=== PATIENT | male | born 1940 | race Caucasian/White ===

== ENCOUNTER → 2018-05-29 08:52 | Outpatient (CLI) | payer MEDICARE, BC ==
[2015-12-14 11:00] VITALS: BMI 27.2
[~2018-05-29 08:52] MED LIST: ALBUTEROL1.25 MG/3 INH; ASPIRIN325 MG PO; ATIVAN0.5 MG PO; BUMEX2 MG PO; CLEOCIN HCL150 MG PO; COREG6.25 MG PO; DIOVAN HCT 160/1 TAB PO; FERROUS SULFAT325 MG PO; FLOMAX0.4 MG PO; FUROSEMIDE20 MG PO; FUROSEMIDE40 MG PO; GABAPENTIN100 MG PO; GLUCOPHAGE500 MG; GLUCOPHAGE500 MG PO; GLUCOTROL 5 MG T5 MG; GLUCOTROL 5 MG T5 MG PO; HYDRALAZINE HCL50 MG PO; LASIX20 MG PO; LASIX40 MG PO; LEVAQUIN250 MG PO; LEVAQUIN500 MG PO; LIPITOR40 MG PO; NITRO-DUR0.4 MG TRANSDERM; POTASSIUM99 M1 PO; PREDNISONE20 MG PO; PROTONIX40 MG PO; SODIUM BICARBO650 MG PO; SYMBICORT 16010.2 GM INH; TUMS500 MG PO; VENTOLIN HFA18 GM INH; VIBRAMYCIN 100100 MG PO
--- NOTE | 2018-06-02 14:01 | EC ---
PATIENT:EUFEMIA CHOWDHURY DATE OF SERVICE: 05/29/18 SEX: M MEDICAL RECORD: [id number] DATE OF : 40 LOCATION:D.[facility] AGE OF PATIENT: 78 ADMISSION DATE: 05/29/18 REFERRING PHYSICIAN: INTERPRETING PHYSICIAN: SONIDO MOBLEY MD ECHOCARDIOGRAM REPORT ECHO CHARGES 4 ECHO COMPLETE Date: 05/29/18 CLINICAL DIAGNOSIS: CARDIOMYOPATHY HX OF CAD/HTN/DM/CABG ECHOCARDIOGRAPHIC MEASUREMENTS (adult normal given) AC root (d.<3.7cm) 4.2 cm LV Septum d (<1.2 cm> 1.3 cm Valve Excursion 2.4 cm LV Septum (systole) 1.4 cm Left Atria (s.<4.0cm> 4.4 cm LVPW d(<1.2cm) 1.3 cm RV (d.<2.3cm) 4.8 cm LVPW (sytole) 1.3 cm LV diastole(<5.6CM) 6.7 cm MV E-F(>70mm/sec) cm LV systole 5.4 cm LVOT Diameter 1.9 cm MV exc.(>10mm) 1.3 cm Est.ejection fraction (50-75%) % DOPPLER: LVIT cm/sec A 78.0 cm/sec E 99.30 cm/sec LA cm/sec RVSP 44 mmHg LVOT 99 cm/sec AOP1/2T 849 m/s Asc. Ao 140 cm/sec RVOT 83 cm/sec RA cm/sec PA 133 cm/sec AV Gradient Peak 7.81 mmHg AV Mean 4.28 mmHg AV Area 2.1 cm MV Gradient Peak 4.72 mmHg MV Mean 1.84 mmHg MV Area cm COMMENTS: Paper Sales Representative: Lizzie CARRILLO Club Director: 3 Dr. Calvo TAPE# PACS Pericardial Effusion N DATE OF SERVICE: 05/29/2018 Mild LVH. LV internal dimensions are mildly dilated. LV is mildly globally hypo with mildly reduced EF. Estimated EF is 45% to 50%. Aortic valve sclerosis without stenosis by Doppler interrogation. Mild AI with color-flow imaging. Left atrium is dilated at 4.4 cm. Mitral valve is thickened. Moderate MR. Right-sided chambers are grossly normal. Mild TR. TRANSINT:[id number] Voice Confirmation ID: [id number] DOCUMENT ID: [id number] ECHOCARDIOGRAM REPORT [id number] EUFEMIA CHOWDHURY GREGORY A MD at 1401 CC: [id number] DICTATION DATE: 05/30/18 1235 DIE GRINDER: 05/30/18 1424 DEP CLI 05/29/18 [id number] [place] [address]
== END | disposition home or self-care (01) ==
LOC: D.HCCARDIO 08:30
PROVIDERS: ATTEND Internal Medicine Interventional Cardiology
DX: I42.9 Cardiomyopathy, unspecified (principal)

== ENCOUNTER → 2019-08-03 11:29 | Outpatient (CLI) | payer MEDICARE, BC ==
[2015-12-14 11:00] VITALS: BMI 27.2
--- NOTE | 2019-08-05 08:24 | EC ---
PATIENT:EUFEMIA CHOWDHURY DATE OF SERVICE: 08/03/19 SEX: M MEDICAL RECORD: [id number] DATE OF : 40 LOCATION:D.[facility] AGE OF PATIENT: 79 ADMISSION DATE: 08/03/19 REFERRING PHYSICIAN: INTERPRETING PHYSICIAN: SONIDO MOBLEY MD ECHOCARDIOGRAM REPORT ECHO CHARGES 4 ECHO COMPLETE Date: 08/03/19 CLINICAL DIAGNOSIS: HX OF CARDIOMYOPATHY/HEART FAILURE/CAD ECHOCARDIOGRAPHIC MEASUREMENTS (adult normal given) AC root (d.<3.7cm) 4.5 cm LV Septum d (<1.2 cm> 1.6 cm Valve Excursion 2.0 cm LV Septum (systole) 1.7 cm Left Atria (s.<4.0cm> 4.4 cm LVPW d(<1.2cm) 1.2 cm RV (d.<2.3cm) 5.0 cm LVPW (sytole) 1.4 cm LV diastole(<5.6CM) 6.6 cm MV E-F(>70mm/sec) cm LV systole 5.2 cm LVOT Diameter 1.8 cm MV exc.(>10mm) 1.5 cm Est.ejection fraction (50-75%) % DOPPLER: LVIT cm/sec A 58.0 cm/sec E 87.0 cm/sec LA cm/sec RVSP 59 mmHg LVOT 132 cm/sec AOP1/2T m/s Asc. Ao 146 cm/sec RVOT 65 cm/sec RA cm/sec PA 120 cm/sec AV Gradient Peak 8.47 mmHg AV Mean 4.26 mmHg AV Area 2.5 cm MV Gradient Peak 5.10 mmHg MV Mean 1.69 mmHg MV Area cm COMMENTS: Rehabilitation Therapist: 2 AYE CARRILLO [employer]iconductor Dies Loader: 3 Dr. Calvo TAPE# PACS Pericardial Effusion N DATE OF SERVICE: Adequate 2D, color flow imaging, spectral Doppler, and M-Mode. LVH is present. LV internal dimension is dilated. LV is mildly globally hypo with a reduced EF, estimated EF 40% to 45%. Aortic valve sclerosed without stenosis by Doppler interrogation. Mild AI by color flow imaging. Left atrium is dilated at 4.4 cm. Mitral valve shows no prolapse. Mild MR. Right-sided chambers are grossly normal. Moderate TR. ECHOCARDIOGRAM REPORT [id number] EUFEMIA CHOWDHURY TRANSINT:[id number] Voice Confirmation ID: [id number] DOCUMENT ID: [id number] SONIDO MOBLEY MD at 0824 CC: [id number] DICTATION DATE: 08/04/19 0844 VIBRATING SCREED OPERATOR: 08/04/19 0934 DEP CLI 08/03/19 [place] [id number] [place] [id number]
== END | disposition home or self-care (01) ==
LOC: D.HCCECHO 07-29 13:30
PROVIDERS: ATTEND Internal Medicine Interventional Cardiology
DX: I50.9 Heart failure, unspecified (principal)

== ENCOUNTER → 2020-05-24 13:58 | Outpatient (CLI) | payer MEDICARE, BC ==
[2015-12-14 11:00] VITALS: BMI 27.2
== END | disposition home or self-care (01) ==
LOC: D.RT 13:58
PROVIDERS: ATTEND Internal Medicine Pulmonary Disease
DX: J44.9 Chronic obstructive pulmonary disease, unspecified (principal)

== ENCOUNTER 2020-07-12 17:47 | Inpatient (IN) | payer MEDICARE, BC ==
[~2020-07-12] VITALS: Ht 170.2 cm; Wt 79.3 kg
--- NOTE | ~2020-07-12 | OP ---
PATIENT NAME: EUFEMIA CHOWDHURY MEDICAL RECORD: [id number] :40 LOCATION:D.M2 D.2113 ADMISSION DATE:07/12/20 SURGEON: LASHELL MOTA MD DATE OF OPERATION: 07/19/2020 PREOPERATIVE DIAGNOSES: 1. End-stage renal disease. 2. Diabetes mellitus. 3. Hypertension. 4. Congestive heart failure. POSTOPERATIVE DIAGNOSES: 1. End-stage renal disease. 2. Diabetes mellitus. 3. Hypertension. 4. Congestive heart failure. PROCEDURE: 1. Right IJ 19 cm HemoSplit catheter placement. 2. Fluoroscopic interpretation. SURGEON: Lashell Mota MD REPORT OF PROCEDURE: The patient's right neck and indwelling Trialysis catheter were all prepped and draped in sterile fashion. The distal catheter was cut and we advanced a wire through the Trialysis catheter. Fluoroscopy was noted that the catheter was in good position in the venous system. The catheter was removed. A total of 10 mL of 1% lidocaine with epinephrine was infused into the tissues of the patient's right neck and chest. A skin incision was made on the right lateral chest and the catheter was tunneled between this and the wire exit site. The dilator trocar device was placed over the wire and the wire and dilator were removed. The catheter tips were advanced through the trocar and then they were pulled back into position at the superior vena cava. The catheter aspirated nonpulsatile dark blood and flushed easily with heparinized saline. We sutured the catheter into place with 2-0 Prolenes. The subcutaneous tissues were reapproximated with interrupted 3-0 Vicryl and a 2-0 Prolene was placed around the distal skin edge because there was some bleeding present. COMPLICATIONS: None. CONDITION: Stable. ANESTHESIA: TIVA and local. BLOOD LOSS: 50 mL. TRANSINT:[id number] Voice Confirmation ID: [id number] DOCUMENT ID: [id number] OPERATIVE REPORT [id number] EUFEMIA CHOWDHURY LASHELL MOTA MD CC: [id number] DICTATION DATE: 07/19/20 1259 PICK UP TRUCK DRIVER: 07/19/20 1833 ADM IN [facility] [address] [place] [address]
--- NOTE | ~2020-07-12 | OP ---
PATIENT NAME: EUFEMIA CHOWDHURY MEDICAL RECORD: [id number] :40 LOCATION:D.M2 D.2113 ADMISSION DATE:07/12/20 SURGEON: LASHELL MOTA MD DATE OF OPERATION: 07/16/2020 PREOPERATIVE DIAGNOSES: 1. Malfunctioning right IJ Trialysis catheter. 2. Chronic kidney disease. 3. Bfhoh-me-mirqdlz kidney disease. 4. Diabetes mellitus. 5. Hypertension. 6. Congestive heart failure, undifferentiated. POSTOPERATIVE DIAGNOSES: 1. Malfunctioning right IJ Trialysis catheter. 2. Chronic kidney disease. 3. Mscup-aq-qfkphmb kidney disease. 4. Diabetes mellitus. 5. Hypertension. 6. Congestive heart failure, undifferentiated. PROCEDURE: Right IJ Trialysis catheter exchange. SURGEON: Lashell Mota MD DESCRIPTION OF PROCEDURE: The patient's right neck and indwelling Trialysis catheter were prepped and draped in sterile fashion. We removed the sutures and cut the nurse port. I was able to pass a wire. As we passed the wire, we ran into some resistance at about 15-20 cm from the skin. I kept pulling the wire back and readvancing the wire and eventually it passed through with ease and we were able to pass it to about 40 cm. Once we did this, then we advanced the 12.5 cm Trialysis catheter over the wire and it easily passed down into the vessel. The catheter aspirated nonpulsatile dark blood and flushed easily in all 3 ports. This was then sutured into place with 4-0 nylon and dressed appropriately. COMPLICATIONS: None. CONDITION: Stable. ANESTHESIA: Local. BLOOD LOSS: Minimal. Procedure done at the bedside. TRANSINT:[id number] Voice Confirmation ID: [id number] DOCUMENT ID: [id number] OPERATIVE REPORT [id number] EUFEMIA CHOWDHURY LASHELL OMTA MD CC: [id number] DICTATION DATE: 07/16/20 1110 PERSONAL BANKING OFFICER: 07/16/20 1129 ADM IN [address] [id number] [place] [address]
[2020-07-12] MEDS ORDERED: ZYLOPRIM100 MG PO (17:56)
[2020-07-12] MEDS ORDERED: PROSCAR5 MG PO (17:57)
[2020-07-12] MEDS ORDERED: TRESIBA FL100 UNIT/1 SC (17:58)
[2020-07-12] MEDS ORDERED: BUMEX2 MG PO (17:58)
[2020-07-12] MEDS ORDERED: PULMICORT0.25 MG/1 INH (17:59)
[2020-07-12] MEDS ORDERED: BROVANA15 MCG/2 M INH (18:00)
[2020-07-12] MEDS ORDERED: ALDACTONE25 MG PO (18:00)
[2020-07-12] MEDS ORDERED: FERROUS SULFAT325 MG PO (18:00)
[2020-07-12] MEDS ORDERED: VITAMIN D-40010 MCG PO (18:01)
[2020-07-12] MEDS ORDERED: NITROQUICK0.4 MG SL (18:04)
[2020-07-12] MEDS ORDERED: NITRO-DUR1 EAC3 TOPICAL (18:04)
[2020-07-12 18:38] LABS: APTT 32.8 SECONDS (22.8-39.4); INR 1.3 (0.85-1.17)
[2020-07-12 18:39] LABS: CALC OSMOLALITY 301 mosm/kg (275-300); CALCIUM 8.5 mg/dL (8.5-10.1); CARBON DIOXIDE 28.3 mmol/L (21.0-32.0); CHLORIDE - SERUM 101 mmol/L (98-107); CREATININE - SERUM 3.9 mg/dL (0.6-1.3); GLUCOSE 115 mg/dL (74-106); POTASSIUM - SERUM 5.2 mmol/L (3.5-5.1); SODIUM 139 mmol/L (136-145); UREA NITROGEN 77 mg/dL (7-18); eGFR NON AFRICAN AMERICAN 16 mL/min (90-120)
[2020-07-12 19:03] LABS: ALBUMIN 3.2 g/dL (3.4-5.0); ALKALINE PHOSPHATASE 120 U/L (30-120); ALT (SGPT) 20 U/L (10-68); BILIRUBIN - TOTAL 1.07 mg/dL (0.2-1.3); CREATINE KINASE 51 UL (21-232); PROTEIN - SERUM 6.4 g/dL (6.4-8.2)
[2020-07-12 19:08] LABS: TROPONIN-I 0.205 ng/mL (0.000-0.060)
[2020-07-12 19:19] LABS: BASOPHILS 0.1 % (0-2); EOSINOPHILS 0.8 % (0-7); HEMATOCRIT 37.7 % (42.0-54.0); HEMOGLOBIN 11.5 g/dL (13.5-17.5); IMMATURE GRANULOCYTES 0.3 % (0-5); LYMPHOCYTE ABS# 0.62 10x3/uL (1.32-3.57); LYMPHOCYTES 8.7 % (15-50); MCHC 30.5 g/dL (31.0-37.0); MCV 101.6 fL (80.0-100.0); MEAN PLATELET VOLUME 12.4 fL (7.4-10.4); MONOCYTES 11.1 % (2-11); NEUTROPHIL ABS# 5.63 10x3/uL (1.78-5.38); PLATELET COUNT 142 10x3/uL (130-400); RBC 3.71 10x6/uL (4.20-6.10); RDW 16.1 % (11.5-14.5); WBC 7.1 10x3/uL (4.8-10.8)
[2020-07-12 20:03] VITALS: BP 106/70
[2020-07-12 21:16] VITALS: BP 123/91
[2020-07-12 21:24] LABS: CKMB 3.9 U/L (0.0-3.6); CREATINE KINASE 52 UL (21-232)
[2020-07-12 21:29] LABS: TROPONIN-I 0.198 ng/mL (0.000-0.060)
[2020-07-12 21:56] VITALS: BP 102/73
[2020-07-12] MEDS ORDERED: VITAMIN D31250 MCG PO (23:21)
[2020-07-12 23:45] LABS: % SATURATION 16 % (15-55); IRON 35 ug/dl (35-150); TOTAL IRON BIND CAPACITY 209 ug/dl (260-445); UNSAT IRON BIND CAPACITY 174 ug/dl (150-375)
[2020-07-13] VITALS (7 sets, daily range): BP systolic 102–128; BP diastolic 64–83; BMI 27.3; BMI 27.2
[2020-07-13 05:52] LABS: BASOPHILS 0.2 % (0-2); HEMATOCRIT 38.1 % (42.0-54.0); HEMOGLOBIN 11.4 g/dL (13.5-17.5); IMMATURE GRANULOCYTES 0.2 % (0-5); LYMPHOCYTE ABS# 0.69 10x3/uL (1.32-3.57); LYMPHOCYTES 11.7 % (15-50); MCH 30.9 pg (26.0-34.0); MCHC 29.9 g/dL (31.0-37.0); MCV 103.3 fL (80.0-100.0); MEAN PLATELET VOLUME 12.3 fL (7.4-10.4); MONOCYTES 12.9 % (2-11); NEUTROPHIL ABS# 4.35 10x3/uL (1.78-5.38); PLATELET COUNT 146 10x3/uL (130-400); RBC 3.69 10x6/uL (4.20-6.10); RDW 16.3 % (11.5-14.5); WBC 5.9 10x3/uL (4.8-10.8)
[2020-07-13 06:38] LABS: ALBUMIN 3.1 g/dL (3.4-5.0); ALKALINE PHOSPHATASE 119 U/L (30-120); ALT (SGPT) 23 U/L (10-68); BILIRUBIN - TOTAL 0.89 mg/dL (0.2-1.3); CALC OSMOLALITY 303 mosm/kg (275-300); CALCIUM 8.3 mg/dL (8.5-10.1); CARBON DIOXIDE 31.9 mmol/L (21.0-32.0); CHLORIDE - SERUM 101 mmol/L (98-107); CKMB 3.6 U/L (0.0-3.6); CREATINE KINASE 46 UL (21-232); CREATININE - SERUM 4.1 mg/dL (0.6-1.3); GLUCOSE 161 mg/dL (74-106); POTASSIUM - SERUM 5.4 mmol/L (3.5-5.1); PROTEIN - SERUM 6.4 g/dL (6.4-8.2); SODIUM 139 mmol/L (136-145); UREA NITROGEN 77 mg/dL (7-18); eGFR NON AFRICAN AMERICAN 15 mL/min (90-120)
[2020-07-13 06:43] LABS: TROPONIN-I 0.169 ng/mL (0.000-0.060)
--- NOTE | 2020-07-13 07:30 | NUR ---
LAYING IN BED RESTING COMFORTABLE, NO DISTRESS NOTED, DENEIS PAIN, CALL LIGHT IN REACH, WILL MONITOR
--- NOTE | 2020-07-13 08:35 | NUR ---
SITTING UP EATING BREAKFAST
--- NOTE | 2020-07-13 10:30 | NUR ---
notified SABRINA Chung of renal consult
--- NOTE | 2020-07-13 11:00 | NUR ---
ASSISTED PT UP TO BSC AND THEN TO RECLINER, TOELRATED WELL BUT VERY WEAK, CALL LIGHT IN REACH, WILL MONITOR
[2020-07-13 11:38] LABS: CKMB 3.3 U/L (0.0-3.6); CREATINE KINASE 46 UL (21-232); TROPONIN-I 0.168 ng/mL (0.000-0.060)
[2020-07-13 14:50] LABS: BILIRUBIN NEGATIVE (NEGATIVE); KETONE NEGATIVE (NEGATIVE); NITRITE NEGATIVE (NEGATIVE); UROBILINOGEN NORMAL mg/dL (< 2)
--- NOTE | 2020-07-13 15:35 | NUR ---
FAMILY AT BEDSIDE, NO NEEDS VOICED AT THIS TIME
[2020-07-13 16:22] LABS: CREATININE - URINE 32.9 mg/dL (30-125); PROTEIN - URINE 26.5 mg/dL (0.0-11.9)
--- NOTE | 2020-07-13 20:30 | NUR ---
REPORT RECEIVED, PT A&O, UP IN BED TALKING ON THE PHONE WITH GRANDDAUGHTER. NO S/S OF DISTRESS OBSERVED. RR EVEN AND UNLABORED ON 3L. BED LOCKED AND LOWERED CL IN REACH. ASSESSMENT COMPLETED AT THIS TIME. WILL CONT POC.
[2020-07-14] VITALS: BP 103/71
[2020-07-14 04:00] VITALS: BP 119/78
[2020-07-14 06:13] LABS: BASOPHILS 0.2 % (0-2); EOSINOPHILS 1.5 % (0-7); HEMATOCRIT 35.4 % (42.0-54.0); HEMOGLOBIN 10.7 g/dL (13.5-17.5); LYMPHOCYTE ABS# 0.52 10x3/uL (1.32-3.57); LYMPHOCYTES 8.7 % (15-50); MCH 30.7 pg (26.0-34.0); MCHC 30.2 g/dL (31.0-37.0); MCV 101.7 fL (80.0-100.0); MEAN PLATELET VOLUME 12.7 fL (7.4-10.4); MONOCYTES 12.8 % (2-11); NEUTROPHIL ABS# 4.62 10x3/uL (1.78-5.38); NEUTROPHILS 76.8 % (40-80); PLATELET COUNT 145 10x3/uL (130-400); RBC 3.48 10x6/uL (4.20-6.10)
[2020-07-14 06:36] LABS: ALBUMIN 2.9 g/dL (3.4-5.0); ANION GAP 10.5 mmol/L (8-16); BILIRUBIN - TOTAL 0.79 mg/dL (0.2-1.3); CALCIUM 8.3 mg/dL (8.5-10.1); CREATININE - SERUM 4.2 mg/dL (0.6-1.3); MAGNESIUM - SERUM 2.9 mg/dL (1.8-2.4); POTASSIUM - SERUM 5.5 mmol/L (3.5-5.1); VANCOMYCIN - RANDOM 10.9 ug/mL (10.0-20.0)
[2020-07-14 07:00] VITALS: BP 127/77
[2020-07-14 11:30] VITALS: BP 120/69
[2020-07-14 14:00] VITALS: BP 129/79
--- NOTE | 2020-07-14 16:30 | NUR ---
REPORT RECEIVED FROM NURSE. RESIDENT RESTING COMFORTABLY WITH GRANDDAUGHTER BY THE BED. NO CURRENT COMPLAINTS NOTED. VERY PLEASANT.
--- NOTE | 2020-07-14 18:00 | NUR ---
I have reviewed this patient and I concur with the Shift Assessment completed by the Licensed Practical Nurse today this shift.
--- NOTE | 2020-07-14 19:00 | NUR ---
RECEIVED SHIFT REPORT FROM DAY SHIFT NURSE, PT VISITING WITH FAMILY MEMBER AT THIS TIME, INFORMED PT THAT I WILL COME BACK SHORTLY TO DO ASSESSMENT, PT VERBALIZES UNDERSTANDING, DENIES NEEDS AT THIS TIME
--- NOTE | 2020-07-14 20:45 | NUR ---
ASSESSMENT PER FLOW SHEET, VS OBTAINED, IV IN RIGHT WRIST INFUSING DOBUTAMINE PER MD ORDERS SEE EMAR, SALINE LOCK TO LEFT AC INTACT, RETAPED, PT REPORTS FLATUS, BM TODAY, AND USING URINAL WITH NO DIFFICULTY, EMPTIED 150 MLS OF CLEAR YELLOW URINE, TELEMETRY IN PLACE, PT DENIES NEEDS OR PAIN AT THIS TIME, BED IN LOW POSITION, SIDE RAILS X 2, CALL LIGHT IN REACH
--- NOTE | 2020-07-14 21:38 | NUR ---
TEJINDER NAVARRETE CNA REPORTS FSBS 153
[2020-07-14 22:11] VITALS: BP 108/68
--- NOTE | 2020-07-14 22:37 | NUR ---
PT AWAKE, ADM 2100/0 MEDS PER MD ORDERS, SEE EMAR, EMPTIED 400 MLS OF CLEAR YELLOW URINE FROM URINAL, PT SERVED FRESH H20, DENIES FURTHER NEEDS, BED IN LOW POSITION, SIDE RAILS X 2, CALL LIGHT IN REACH
[2020-07-15] VITALS (7 sets, daily range): BP systolic 99–124; BP diastolic 68–79; Ht 170.2 cm; Wt 79.3 kg
--- NOTE | 2020-07-15 | NUR ---
PT RESTING WITH EYES CLOSED, RESP QUIET, NO DISTRESS NOTED, LEFT UNDISTURBED AT THIS TIME
--- NOTE | 2020-07-15 02:30 | NUR ---
PT RESTING WITH EYES CLOSED, RESP QUIET, NO DISTRESS NOTED, LEFT UNDISTURBED AT THIS TIME
--- NOTE | 2020-07-15 04:34 | NUR ---
PT AWAKE, USING URINAL, INFORMED PT THAT I WILL COME BACK IN A FEW MINUTES, PT VERBALIZES UNDERSTANDING
--- NOTE | 2020-07-15 04:40 | NUR ---
PT FINISHED USING URINAL, EMPTIED 750 ML FROM URINAL, PUMP CLEARED, PT DENIES NEEDS OR PAIN AT THIS TIME, BED IN LOW POSITION, SIDE RAILS X 2, CALL LIGHT IN REACH
--- NOTE | 2020-07-15 06:17 | NUR ---
ADM PROTONIX PO PER MD ORDERS, TEJINDER NAVARRETE CNA OBTAINED FSBS, WEIGHT, AND CHANGED BEDDING
[2020-07-15 06:32] LABS: BASOPHILS 0.2 % (0-2); EOSINOPHILS 1.9 % (0-7); HEMATOCRIT 35.8 % (42.0-54.0); HEMOGLOBIN 10.9 g/dL (13.5-17.5); LYMPHOCYTE ABS# 0.49 10x3/uL (1.32-3.57); LYMPHOCYTES 9.3 % (15-50); MCH 30.7 pg (26.0-34.0); MCHC 30.4 g/dL (31.0-37.0); MCV 100.8 fL (80.0-100.0); MONOCYTES 14.4 % (2-11); NEUTROPHIL ABS# 3.93 10x3/uL (1.78-5.38); NEUTROPHILS 74.2 % (40-80); PLATELET COUNT 148 10x3/uL (130-400); RBC 3.55 10x6/uL (4.20-6.10); WBC 5.3 10x3/uL (4.8-10.8)
--- NOTE | 2020-07-15 06:37 | NUR ---
BP OBTAINED, SALINE LOCK IN LEFT AC FLUSHED, ADM LASIX SIVP, SALINE LOCK FLUSHED
--- NOTE | 2020-07-15 07:00 | NUR ---
PT LYING IN BED WITH EYES CLOSED. RESP EVEN AND UNLABORED. RAISES TO VERBAL STIMULI. O2 [address] AAOX4. PT DENIES NEEDS AT THIS TIME. CLIR. BED IN LOWEST POSITION. SIDE RAILS X2
--- NOTE | 2020-07-15 07:00 | NUR ---
SHIFT REPORT TO DAY SHIFT
[2020-07-15 07:01] LABS: ALBUMIN 3.1 g/dL (3.4-5.0); ANION GAP 14.6 mmol/L (8-16); BILIRUBIN - TOTAL 1.28 mg/dL (0.2-1.3); CALCIUM 8.8 mg/dL (8.5-10.1); CARBON DIOXIDE 28.7 mmol/L (21.0-32.0); CREATININE - SERUM 4.2 mg/dL (0.6-1.3); MAGNESIUM - SERUM 2.5 mg/dL (1.8-2.4); POTASSIUM - SERUM 5.3 mmol/L (3.5-5.1); PROTEIN - SERUM 6.5 g/dL (6.4-8.2); VANCOMYCIN - RANDOM 15.9 ug/mL (10.0-20.0)
[2020-07-15 09:13] LABS: HEPATITIS C ANTIBODY <0.1 (0.0-0.9)
--- NOTE | 2020-07-15 13:16 | NUR ---
Nutrition Follow-up: Good appetite. Reports eating well overall. Noted plans to place trialysis catheter and start HD. K+ consistently elevated. Diet: Diabetic Wt: 174# (07/15) Labs noted: K+ 5.3, BUN 78, Cre 4.2, GFR 14, Glu 137, Mg 2.5, Alb 3.1 Meds noted: Lasix, Florajen, vit D, Protonix, Humalog, Tums, electrolyte protocol -Change to renal carb consistent diet. -Encourage PO intake and honor food preferences within diet restrictions. -Monitor wt. -RD will follow up within 4-5 days.
--- NOTE | 2020-07-15 16:09 | NUR ---
PT TRANSPORTED TO DIALYSIS ACCOMPANIED BY HOSPITAL STAFF. O2 VIA NC AT [address]
--- NOTE | 2020-07-15 17:15 | NUR ---
PT RETURNED TO UNIT. NO DISTRESS NOTED. 02 VIA HFNC AT 3 LPM. CLIR. BED IN LOWEST POSITION. SIDE RAILS X2
--- NOTE | 2020-07-15 18:04 | NUR ---
PT NEEDS A STOOL SAMPLE COLLECTED. NO BM TODAY. HE STATES HE THINKS HE HAD ONE YESTERDAY.
--- NOTE | 2020-07-15 18:39 | NUR ---
MYKE CAVAZOS ORDERD NORCO 5MG FOR PT AFTER HE REPORTED 10/10 PAIN DUE TO TRIALYSIS. PT OFFERED NORCO 5MG BUT REFUSED. STATES HE WILL ASK FOR ONE LATER IF HE NEEDS IT. NO DISTRESS NOTED. RESTING QUIETLY
--- NOTE | 2020-07-15 19:43 | NUR ---
REPORT RECIEVED AND INITIAL ROUNDS COMPLETED. PT RESTING. NO DISTRESS. CALL LIGHT IN REACH.
[2020-07-16 01:11] VITALS: BP 110/69
--- NOTE | 2020-07-16 01:26 | NUR ---
RESTING IN BED WITH EYES CLOSED. DOBUTAMINE DRIP INFUSING AT 7ML/HR (3MCG/KG/MIN). VOIDING TO URINAL. FLUTTER 114 PER MONITORS. CALL LIGHT IN REACH.
[2020-07-16 05:15] LABS: BASOPHILS 0.2 % (0-2); EOSINOPHILS 1.4 % (0-7); HEMATOCRIT 34.9 % (42.0-54.0); HEMOGLOBIN 10.6 g/dL (13.5-17.5); LYMPHOCYTES 9.9 % (15-50); MCH 30.5 pg (26.0-34.0); MCHC 30.4 g/dL (31.0-37.0); MCV 100.6 fL (80.0-100.0); MEAN PLATELET VOLUME 10.9 fL (7.4-10.4); MONOCYTES 14.7 % (2-11); NEUTROPHIL ABS# 3.72 10x3/uL (1.78-5.38); NEUTROPHILS 73.8 % (40-80); PLATELET COUNT 139 10x3/uL (130-400); RBC 3.47 10x6/uL (4.20-6.10); RDW 15.8 % (11.5-14.5)
[2020-07-16 05:19] VITALS: BP 116/78
[2020-07-16 05:24] VITALS: BP 116/78
[2020-07-16 06:00] LABS: ALBUMIN 3.1 g/dL (3.4-5.0); ANION GAP 13.2 mmol/L (8-16); BILIRUBIN - TOTAL 0.95 mg/dL (0.2-1.3); CALCIUM 9.1 mg/dL (8.5-10.1); CARBON DIOXIDE 28.7 mmol/L (21.0-32.0); MAGNESIUM - SERUM 2.4 mg/dL (1.8-2.4); POTASSIUM - SERUM 4.9 mmol/L (3.5-5.1); PROTEIN - SERUM 6.4 g/dL (6.4-8.2); VANCOMYCIN - RANDOM 21.9 ug/mL (10.0-20.0)
[2020-07-16 07:30] VITALS: BP 131/74
--- NOTE | 2020-07-16 07:35 | NUR ---
INITIAL ROUNDS- PT RESTING COMFORTABLY IN BED, A/O X4, [place] TRIBE IN [place], RESP EVEN AND NONLABORED ON 3L NC. LT AC SL. RT WRIST INFUSING DOBUTAMIN AT 7CC/HR. RT IJ TRIALYSIS IN PLACE DRESSING CDI. ST 115 WITH PVC ON TELE. EMPTIED 400CC OF YELLOW URINE OUT OF URINAL AND EMPTIED A LARGE AMOUNT OF URINE OUT OF BEDSIDE COMMODE. PT DENIES ANY NEEDS AT THIS TIME. CALL LIGHT IN REACH, WILL CONTINUE PLAN OF CARE.
--- NOTE | 2020-07-16 12:18 | NUR ---
PT TO DIALYSIS VIA BED.
--- NOTE | 2020-07-16 14:30 | NUR ---
RECEIVED PT BACK TO ROOM 2113. PT DROWSY BUT EASILY AROUSES TO VOICE. PT DENIES ANY NEEDS AT THIS TIME. CALL LIGHT IN REACH.
[2020-07-16 15:30] VITALS: BP 103/70
--- NOTE | 2020-07-16 20:29 | NUR ---
INITIAL ROUNDS AND ASSESSMENT COMPLETED. PT RESTING IN BED. HE NOW HAS A WORKING TRIALYIS TO RIGHT IJ. USED IN DIALYSIS TODAY. HE STILL HAS A SALINE LOCK PIV TO LEFT A/C AND DOBUTAMINE @ 3MCG/KG/MIN (7ML/HR) IS INFUSING TO PIV IN RIGHT WRIST. PT IS ALERT/ORIENTED. VERY [place]. O2 @ 3L/HFNC. CURRENTLY RUNNING ST PER TELEMETRY. CALL LIGHT IN REACH. SR UP X 2 AND BED LOW.
[2020-07-16 21:07] VITALS: BP 100/65
[2020-07-17 01:23] VITALS: BP 114/72
[2020-07-17 05:07] VITALS: BP 114/72
[2020-07-17 06:12] LABS: BASOPHILS 0.2 % (0-2); HEMATOCRIT 34.7 % (42.0-54.0); HEMOGLOBIN 10.6 g/dL (13.5-17.5); LYMPHOCYTE ABS# 0.59 10x3/uL (1.32-3.57); LYMPHOCYTES 14.7 % (15-50); MCH 30.8 pg (26.0-34.0); MCHC 30.5 g/dL (31.0-37.0); MCV 100.9 fL (80.0-100.0); MEAN PLATELET VOLUME 11.4 fL (7.4-10.4); MONOCYTES 16.7 % (2-11); NEUTROPHIL ABS# 2.66 10x3/uL (1.78-5.38); NEUTROPHILS 66.4 % (40-80); PLATELET COUNT 157 10x3/uL (130-400); RBC 3.44 10x6/uL (4.20-6.10); RDW 15.8 % (11.5-14.5)
--- NOTE | 2020-07-17 06:32 | NUR ---
AM MEDS GIVEN. BLOOD FOR LAB COLLECTED FROM RIGHT IJ TRIALYSIS. IV DOBUTAMINE INFUSING @ 3MCG/KG/MIN. ST PER TELEMETRY. CALL LIGHT IN REACH.
[2020-07-17 06:41] LABS: BILIRUBIN - TOTAL 0.9 mg/dL (0.2-1.3); CARBON DIOXIDE 31.8 mmol/L (21.0-32.0); MAGNESIUM - SERUM 1.9 mg/dL (1.8-2.4); POTASSIUM - SERUM 4.8 mmol/L (3.5-5.1); VANCOMYCIN - RANDOM 21.1 ug/mL (10.0-20.0)
--- NOTE | 2020-07-17 07:40 | NUR ---
INITIAL ROUNDS- PT RESTING COMFORTABLY IN BED WITH EYES CLOSED, EASILY AROUSES TO VOICE. PT A/O X4, RESP EVEN AND UNLABORED ON 3L HF. LT AC SL. RT WRIST INFUSING DOBUTAMINE AT 7CC/HR. RT IJ TRIALYSIS WITH DRESSING CDI. ST 116 ON TELE. EMPTIED 700CC OF YELLOW URINE OUT OF URINAL. ALL NEEDS MET, CALL LIGHT IN REACH, WILL CONTINUE PLAN OF CARE.
[2020-07-17 08:07] VITALS: BP 122/78
--- NOTE | 2020-07-17 11:08 | NUR ---
BLOOD SUGAR OF 142, NO COVERAGE NEEDED PER S/S. PT RESTING COMFORTABLY IN BED, DENIES ANY NEEDS.
[2020-07-17 11:22] VITALS: BP 102/61
[2020-07-17 15:18] VITALS: BP 103/69
--- NOTE | 2020-07-17 16:38 | NUR ---
BLOOD SUGAR OF 188, 2UNITS OF INSULIN GIVEN PER S/S. PT DENIES ANY NEEDS AT THIS TIME. CALL LIGHT IN REACH.
[2020-07-17 20:00] VITALS: BP 93/61
[2020-07-18] VITALS: BP 99/64
[2020-07-18 04:00] VITALS: BP 111/68
[2020-07-18 06:43] LABS: BASOPHILS 0.5 % (0-2); EOSINOPHILS 2.3 % (0-7); HEMATOCRIT 34.8 % (42.0-54.0); HEMOGLOBIN 10.6 g/dL (13.5-17.5); IMMATURE GRANULOCYTES 0.2 % (0-5); LYMPHOCYTE ABS# 0.63 10x3/uL (1.32-3.57); LYMPHOCYTES 14.7 % (15-50); MCH 30.5 pg (26.0-34.0); MCHC 30.5 g/dL (31.0-37.0); MEAN PLATELET VOLUME 11.3 fL (7.4-10.4); MONOCYTES 15.2 % (2-11); NEUTROPHIL ABS# 2.87 10x3/uL (1.78-5.38); NEUTROPHILS 67.1 % (40-80); PLATELET COUNT 162 10x3/uL (130-400); RBC 3.48 10x6/uL (4.20-6.10); RDW 15.7 % (11.5-14.5); WBC 4.3 10x3/uL (4.8-10.8)
[2020-07-18 07:00] LABS: ANION GAP 11.6 mmol/L (8-16); BILIRUBIN - TOTAL 0.64 mg/dL (0.2-1.3); CALCIUM 8.6 mg/dL (8.5-10.1); CARBON DIOXIDE 29.9 mmol/L (21.0-32.0); CREATININE - SERUM 3.4 mg/dL (0.6-1.3); POTASSIUM - SERUM 4.5 mmol/L (3.5-5.1); PROTEIN - SERUM 6.3 g/dL (6.4-8.2); VANCOMYCIN - RANDOM 25.5 ug/mL (10.0-20.0)
--- NOTE | 2020-07-18 07:20 | NUR ---
INITIAL ROUNDS- PT RESTING COMFORTABLY IN BED. A/O X4, RESP EVEN AND NONLABORED ON 3L HF. RT WRIST INFUSING DOBUTAMINE AT 7CC/HR. RT IJ TRIALYSIS WITH CDI DRESSING, SWAB CAP IN PLACE. PROVIDED PT WITH ICE WATER AND EMPTIED 600CC OF YELLOW URINE OUT OF URINAL. PT NPO FOR POSSIBLE HEMOSPLIT PLACEMENT TODAY. ALL NEEDS MET CALL LIGHT IN REACH, WILL CONTINUE PLAN OF CARE.
[2020-07-18 08:00] VITALS: BP 119/83
--- NOTE | 2020-07-18 10:44 | NUR ---
GAVE 4MG OF MORPHINE FOR PAIN LEVEL OF 6/10. ALSO GAVE SCHEDULED ATIVAN FOR ANXIETY THAT WAS HELD THIS AM. PT VERY ANXIOUS BECAUSE WE STILL DON'T KNOW IF PT IS HAVING HEMOSPLIT PLACEMENT TODAY. ALL NEEDS MET, DAUGHTER AT BEDSIDE, CALL LIGHT IN REACH.
--- NOTE | 2020-07-18 10:59 | NUR ---
BLOOD SUGAR OF 129, NO COVERAGE NEEDED PER S/S.
[2020-07-18 11:00] VITALS: BP 115/67
--- NOTE | 2020-07-18 11:15 | NUR ---
CALLED DR. MOTA AND INFORMED HIM THAT PT IS UNDER THE IMPRESSION THAT HE IS HAVING A HEMOSPLIT PLACED TODAY. PT HAS BEEN NPO FOR POSSIBLE PROCEDURE TODAY. PER DR. MOTA PT IS NOT HAVING SURGERY TODAY IT WILL BE TOMORROW, WILL COME AND TALK TO PT LATER TODAY, OK TO EAT. PT TO DIALYSIS.
--- NOTE | 2020-07-18 15:12 | NUR ---
RECEIVED PT BACK TO ROOM 2113. ORDERED PT A TURKEY SANDWICH BECAUSE HE DOES NOT LIKE WHAT HE GOT FOR LUNCH. PT DENIES ANY OTHER NEEDS AT THIS TIME. CALL LIGHT IN REACH, FAMILY AT BEDSIDE.
--- NOTE | 2020-07-18 16:11 | NUR ---
BLOOD SUGAR OF 204, 6UNITS OF INSULIN GIVEN PER S/S. PT JUST GOT DONE EATING HIS LUNCH, DENIES ANY NEEDS AT THIS TIME. DAUGHTER AT BEDSIDE, CALL LIGHT IN REACH.
--- NOTE | 2020-07-18 16:45 | NUR ---
DIALYSIS TREATMENT TODAY. REMOVED 1 LITER. TOLERATED WELL WITH DOBUTAMINE DRIP AT 3MCG/KG/MIN. ENDING B/P . REPORT GIVEN TO GALLO WOODRUFF RN.
--- NOTE | 2020-07-18 19:05 | NUR ---
REPORT RECEIVED. PT A&O, UP IN BED RECEIVING BREATHING TREATMENT. NO S/S OF DISTRESS OBSERVED. RR EVEN & UNLABORED ON 3L. BED LOCKED AND LOWERED, CL IN REACH. ASSESSMENT COMPLETED AT THIS TIME. WILL CONT POC.
[2020-07-18 21:59] VITALS: BP 94/65
[2020-07-19] VITALS (9 sets, daily range): BP systolic 90–105; BP diastolic 60–71
[2020-07-19 05:59] LABS: BASOPHILS 0.2 % (0-2); EOSINOPHILS 1.2 % (0-7); HEMATOCRIT 35.9 % (42.0-54.0); HEMOGLOBIN 10.9 g/dL (13.5-17.5); IMMATURE GRANULOCYTES 0.4 % (0-5); LYMPHOCYTE ABS# 0.56 10x3/uL (1.32-3.57); LYMPHOCYTES 10.9 % (15-50); MCH 30.8 pg (26.0-34.0); MCHC 30.4 g/dL (31.0-37.0); MCV 101.4 fL (80.0-100.0); MEAN PLATELET VOLUME 11.5 fL (7.4-10.4); NEUTROPHIL ABS# 3.72 10x3/uL (1.78-5.38); NEUTROPHILS 72.3 % (40-80); PLATELET COUNT 171 10x3/uL (130-400); RBC 3.54 10x6/uL (4.20-6.10); RDW 15.5 % (11.5-14.5); WBC 5.1 10x3/uL (4.8-10.8)
[2020-07-19 06:21] LABS: ALBUMIN 3.2 g/dL (3.4-5.0); ANION GAP 11.1 mmol/L (8-16); BILIRUBIN - TOTAL 0.56 mg/dL (0.2-1.3); CALCIUM 8.7 mg/dL (8.5-10.1); CARBON DIOXIDE 30.7 mmol/L (21.0-32.0); CREATININE - SERUM 2.8 mg/dL (0.6-1.3); MAGNESIUM - SERUM 2.1 mg/dL (1.8-2.4); POTASSIUM - SERUM 4.8 mmol/L (3.5-5.1); PROTEIN - SERUM 6.5 g/dL (6.4-8.2); URIC ACID 3.9 mg/dL (2.6-7.2); VANCOMYCIN - RANDOM 20.1 ug/mL (10.0-20.0)
--- NOTE | 2020-07-19 08:46 | NUR ---
AM MEDS GIVEN PRIOR, PT LYING IN BED WITH HOB RAISED, EYES CLOSED, O2 IN PLACE. RR EVEN NON LABORED. PT FAMILY AT BEDSIDE. DOBUMATIME DRIP INFUSING WITHOUT COMPLICATIONS. NO NEEDS VOICED. CLWR.
--- NOTE | 2020-07-19 10:50 | NUR ---
PT TAKEN TO SURGERY AT THIS TIME VIA BED.
--- NOTE | 2020-07-19 13:24 | NUR ---
Nutrition Reassessment/Follow-up: NPO for hemosplit today. Overall good PO intake otherwise. ST signed off. HD yesterday (-1 L). Wt: 174# (07/15)IBW: 148# Labs noted: BUN 40, Cre 2.8, GFR 23, K+ 4.8, Glu 153, Alb 3.2 Meds noted: Florajen, Protonix, Zofran, Tums, Humalog, electrolyte protocol Est needs: 9372-3609 kcal/day (30-35 kcal/kg IBW) 80-90 g protein/day (1.2-1.3 g/kg IBW) Fluid: 1000 mL + UOP -Resume diet when medically feasible (renal carb consistent, Nepro TID). -Need new wt. -RD will follow up within 7 days if pt still admitted.
--- NOTE | 2020-07-19 13:57 | NUR ---
PT ARRIVED FROM SURGERY AT THIS TIME. RR EVEN NON LABORED. O2 IN PLACE VIA NC. PT AWAKENS EASILY, DROWSINESS NOTED. VS STABLE. GRANDDAUGHTER AT BESIDE. CLWR.
--- NOTE | 2020-07-19 17:36 | NUR ---
PT SITTING UP IN BED EATING DINNER TRAY, RR EVEN NON LABORED , O2 INPLACE. GRANDDAUGHTER AT BEDSIDE. NO NEEDS VOICED. CLWR.
[2020-07-19 18:41] LABS: SARS-CoV-2 ANTIGEN NEGATIVE- SARS-COV-2 (NEGATIVE)
--- NOTE | 2020-07-19 20:04 | NUR ---
REPORT RECEIVED. PT A&O, UP IN BED RECEIVING RESP TREATMENT. NO S/S OF DISTRESS OBSERVED. RR EVEN AND UNLABORED ON 3L. BED LOCKED AND LOWERED, CL IN REACH. ASSESSMENT COMPLETE. WILL CONT POC.
[2020-07-20 01:48] VITALS: BP 111/76
[2020-07-20 05:08] LABS: BASOPHILS 0.6 % (0-2); EOSINOPHILS 1.6 % (0-7); HEMATOCRIT 37.4 % (42.0-54.0); HEMOGLOBIN 11.1 g/dL (13.5-17.5); LYMPHOCYTE ABS# 0.52 10x3/uL (1.32-3.57); LYMPHOCYTES 10.3 % (15-50); MCH 30.2 pg (26.0-34.0); MCHC 29.7 g/dL (31.0-37.0); MCV 101.9 fL (80.0-100.0); MEAN PLATELET VOLUME 11.1 fL (7.4-10.4); MONOCYTES 13.6 % (2-11); NEUTROPHIL ABS# 3.74 10x3/uL (1.78-5.38); NEUTROPHILS 73.9 % (40-80); PLATELET COUNT 167 10x3/uL (130-400); RBC 3.67 10x6/uL (4.20-6.10); RDW 15.7 % (11.5-14.5); WBC 5.1 10x3/uL (4.8-10.8)
[2020-07-20 05:25] LABS: ALBUMIN 3.3 g/dL (3.4-5.0); ANION GAP 9.5 mmol/L (8-16); BILIRUBIN - TOTAL 0.56 mg/dL (0.2-1.3); CALCIUM 8.8 mg/dL (8.5-10.1); CARBON DIOXIDE 32.2 mmol/L (21.0-32.0); CREATININE - SERUM 3.4 mg/dL (0.6-1.3); MAGNESIUM - SERUM 2.1 mg/dL (1.8-2.4); POTASSIUM - SERUM 4.7 mmol/L (3.5-5.1); PROTEIN - SERUM 6.6 g/dL (6.4-8.2); VANCOMYCIN - RANDOM 16.8 ug/mL (10.0-20.0)
[2020-07-20 05:50] VITALS: BP 116/74
[2020-07-20 08:09] VITALS: BP 118/76
--- NOTE | 2020-07-20 08:36 | NUR ---
AM MEDS GIVEN, SPOKE WITH PT AND FAMILY REGARDING PLAN TO GO TO DIALYSIS TODAY. RR EVEN NON LABORED. BP MEDS HELD. PT DENIES ANY NEEDS, EATING BREAKFAST. CLWR.
--- NOTE | 2020-07-20 13:14 | NUR ---
PT ARRIVED BACK FROM DIALYSIS AT THIS TIME. PT SPOKE WITH DIETARY REGARDING LUNCH REQUEST FOR FOOD. WIPES GIVEN PER REQUEST. NO FURTHER NEEDS VOICED. CLWR.
--- NOTE | 2020-07-20 14:34 | NUR ---
REHAB PRESCREEN HAS BEEN RECEIVED. MEDICALLY, HE LOOKS LIEK A GOOD PATIENT, BUT THERAPY EVALUATIONS ARE STILL PENDING. I CALLED KAILEE IN OUTPATIENT TO SEE IF SHE COULD CONTACT THE PHYSICAL THERAPIST IN ACUTE TO DAY TO SEE WHERE HE IS ON THE EVALUATION LIST. I HAVE ALSO ASKED FOR AN OT EVAL TO HELP SUPPORT THE NEED FOR 3 HOURS OF THERAPY A DAY. I WILL CONTINUE TO LOOK AT THE CHART AND IF MEETS CRITERIA, WILL CONTINUE WITH THE ELECTRONIC SCREEN PROCESS. THANK YOU FOR THE REFERRAL. MARISA ARANA RN CLINICAL LIAISON, INPATIENT REHAB.
--- NOTE | 2020-07-20 15:10 | NUR ---
THERAPY ATTEMPTED TO DO THEIR EVALUATIONS AND IT WAS DECLINED. PTS GRANDDAUGHTER WANTS TO TAKE HIM HOME, AND THEY DO NOT EVEN WANT THERAPY TO EVALUATE HIM. I HAVE EXPLAINED THIS TO YADIEL ALMENDAREZ RN , AND WE WILL CLOSE OUT THIS REFERRAL. MARISA ARANA RN CLINICAL LIAISON, INPATIENT [facility].
--- NOTE | 2020-07-20 17:02 | MORECARE ---
CASE MANAGEMENT DISCHARGE SUMMARY PATIENT: EUFEMIA CHOWDHURY UNIT: [id number] ADM DATE: 07/12/20 AGE: 80 : 40 SEX: M ROOM/BED: D.2114 AUTHOR: MEAGAN,DOC PHYSICIAN: REFERRING PHYSICIAN: KASEY JOHNSTON DO DATE OF SERVICE: 07/20/20 Case Management Discharge Planning Summary COMMENTS ENTERED DATE: 07/15/20 13:51 CT COMMENT TYPE: Discharge Planning REVIEWER: Kaylen Underwood CM notified Emily dialysis coordinator, that patient will need an outpatient dialysis chair. DCP REVIEW SUMMARY ANTICIPATED D/C DATE: EXPECTED LOS : CASE STATUS: DCP Initiated INITIAL REVIEW: 07/20/2020 INITIAL REVIEWER: Kaylen Underwood FINAL DISCHARGE DISPOSITION: : FINAL REVIEWER: FINAL REVIEW DATE: DCP Focus Questions & Answers DCP Screen QUESTION: ANSWER High Risk Factors: : Hosp related to CHF, COPD, DM, End Stage Ds, CVA, CA DCP Evaluation QUESTION: ANSWER Patient's ability to cope with chronic illness : d. No chronic illness Would patient like to participate in any Care Coordination programs (if applicable): : Not applicable Mental health screen: : No mental health history DCP Re-evaluation QUESTION: ANSWER Would patient like to participate in any Care Coordination programs (if applicable): : Not applicable PATIENT: EUFEMIA CHOWDHURY ENCOUNTER: [id number] MEDICAL RECORD#: [id number] ADMISSION DATE: 07/12/2020 DISCHARGE DATE: ATTENDING MD: KASEY BOYD : AGE: 80 MARITAL STATUS: W DC PLAN ID: [id number] FACILITY: [facility] PRINTED ON: 07/20/20 17:02 CT All edits/amendments must be made on the electronic document DICTATION DATE: 07/20/201701 MANAGER LPN: CHAPIS 07/20/201701 RPT#: [id number] DC DATE: STATUS: ADM IN [facility] [address] [place] [address] END OF REPORT
--- NOTE | 2020-07-20 17:14 | MORECARE ---
CASE MANAGEMENT DISCHARGE SUMMARY PATIENT: EUFEMIA CHOWDHURY UNIT: [id number] ADM DATE: 07/12/20 AGE: 80 : 40 SEX: M ROOM/BED: D.2114 AUTHOR: MEAGAN,DOC PHYSICIAN: REFERRING PHYSICIAN: KASEY JOHNSTON DO DATE OF SERVICE: 07/20/20 Case Management Discharge Planning Summary COMMENTS ENTERED DATE: 07/20/20 17:11 CT COMMENT TYPE: Discharge Planning REVIEWER: Kaylen Underwood DC PLAN: Home with Grand daughter ANTICIPATED DC NEEDS: OP HD chair to be set up in [place]. Emily Nava is working on this CM met with patient to complete initial dc planning assessment. CM educated patient on the CM role and verbal consent given by patient to complete assessment. CM verified patient's address, phone number, and emergency contact phone numbers. Patient lives at home with his grand daughter. His grand daughter is in the room and states she is with him 15/10. At discharge patient plans to return and feels this is a safe discharge. CM discussed availability of home health, rehab services, and medical equipment. Patient denied known discharge needs at this time. Transportation provider at discharge will be his grand daughter. She states she will be the one to drive him to and from HD. She states they have all DME needed and use [facility] for oxygen. CM will continue to follow and will assist as needed with dc plans/needs. ENTERED DATE: 07/15/20 13:51 CT COMMENT TYPE: Discharge Planning REVIEWER: Kaylen Underwood CM notified Emily dialysis coordinator, that patient will need an outpatient dialysis chair. DCP REVIEW SUMMARY ANTICIPATED D/C DATE: EXPECTED LOS : CASE STATUS: DCP Initiated INITIAL REVIEW: 07/20/2020 INITIAL REVIEWER: Kaylen Underwood FINAL DISCHARGE DISPOSITION: : FINAL REVIEWER: FINAL REVIEW DATE: DCP Focus Questions & Answers DCP Screen QUESTION: ANSWER High Risk Factors: : Hosp related to CHF, COPD, DM, End Stage Ds, CVA, CA DCP Evaluation QUESTION: ANSWER Patient's ability to cope with chronic illness : a. Adequate (0-3 ED visits in 6 mos., adequate financial resources, attends scheduled appts.) Patient and/or caregiver agree upon recommended discharge plan? : Yes Family / Caregiver's ability to cope with chronic illness: : a. Adequate (ability to meet patient's medical needs, ensures patient attends medical appts.) Patient's current cognitive status: : *Oriented to person, place, situation, time and present Patient gives permission to discuss discharge plans with: (name, relationship and number) : Luz clinton - [phone] Does the patient have the ability to pay for or attain post discharge needs / services? : Yes Functional screen assessment: : Basic needs can adequately be met by self Family / Caregiver's ability to cope with chronic illness: : a. Adequate (ability to meet patient's medical needs, ensures patient attends medical appts.) Physical Status: : Partial care dependence Physical Status: : Mobility impaired Physical Status: : Compromised skin integrity Equipment needed for post hospitalization: : None Is there a likelihood that the patient will require additional services to return to the preadmission environment? : No Living Arrangements: : Home with others Partial Dependence, assistance required for: : Bathing Partial Dependence, assistance required for: : Ambulation / Mobility Results of this evaluation have been discussed with: : Patient Results of this evaluation have been discussed with: : Family Patient with capacity for self-care or can be cared for in same environment as prior to hospitalization? : Yes Living arrangements comments: : Luz clinton Baseline cognitive status: : *Oriented to person, place, situation, time and present Physical environment modification needed / anticipated for discharge: : No Medication Management: : Patient states can afford medications Planned post hospital services available for patient? : Yes Pharmacy name(s): : [facility] Does Patient have transportation to get home and to follow-up medical appointments when discharged from the hospital? : Yes Would patient like to participate in any Care Coordination programs (if applicable): : Not applicable Comments: : His grand daughter will transport him to and from appointments and dialysis Does the patient have electricity at home? : Yes Does the patient have running water in their house? : Yes Equipment in use: : Wheelchair Equipment in use: : Walker - Rolling Equipment in use: : Shower Chair Equipment in use: : Other Equipment in use: : Nebulizer Equipment in use: : Home Oxygen with Nasal Cannula Equipment in use: : Glucometer Equipment in use: : Cane - Single Leg Other Equipment comments: : Alert button Portable Oxygen Equipment agency name and contact information: : [place] [employer] Patient Mental health screen: : No mental health history Psychosocial status: : Adult with physical limitations Abuse/Neglect: : None Contact information for resources in use: : To have HD chair set up in [facility] Re-evaluation QUESTION: ANSWER Would patient like to participate in any Care Coordination programs (if applicable): : Not applicable PATIENT: EUFEMIA CHOWDHURY ENCOUNTER: [id number] MEDICAL RECORD#: [id number] ADMISSION DATE: 07/12/2020 DISCHARGE DATE: ATTENDING MD: KASEY BOYD : AGE: 80 MARITAL STATUS: W DC PLAN ID: [id number] FACILITY: [facility] PRINTED ON: 07/20/20 17:14 CT All edits/amendments must be made on the electronic document DICTATION DATE: 07/20/201713 RETAIL SALES REPRESENTATIVE: CHAPIS 07/20/201713 RPT#: [id number] DC DATE: STATUS: ADM IN [facility] [address] [place] [address] END OF REPORT
[2020-07-20 19:46] VITALS: BP 111/64
[2020-07-20 23:25] VITALS: BP 95/60
[2020-07-21 05:09] VITALS: BP 95/57
[2020-07-21 05:50] LABS: BASOPHILS 0.2 % (0-2); HEMATOCRIT 33.4 % (42.0-54.0); HEMOGLOBIN 10.3 g/dL (13.5-17.5); IMMATURE GRANULOCYTES 0.2 % (0-5); LYMPHOCYTE ABS# 0.45 10x3/uL (1.32-3.57); LYMPHOCYTES 8.2 % (15-50); MCH 31.1 pg (26.0-34.0); MCHC 30.8 g/dL (31.0-37.0); MCV 100.9 fL (80.0-100.0); MEAN PLATELET VOLUME 11.5 fL (7.4-10.4); MONOCYTES 12.9 % (2-11); NEUTROPHIL ABS# 4.23 10x3/uL (1.78-5.38); NEUTROPHILS 76.5 % (40-80); PLATELET COUNT 153 10x3/uL (130-400); RBC 3.31 10x6/uL (4.20-6.10); RDW 15.7 % (11.5-14.5); WBC 5.5 10x3/uL (4.8-10.8)
[2020-07-21 06:26] LABS: ALBUMIN 2.9 g/dL (3.4-5.0); ANION GAP 11.8 mmol/L (8-16); BILIRUBIN - TOTAL 0.83 mg/dL (0.2-1.3); CALCIUM 8.6 mg/dL (8.5-10.1); CARBON DIOXIDE 30.2 mmol/L (21.0-32.0); CREATININE - SERUM 2.7 mg/dL (0.6-1.3); MAGNESIUM - SERUM 2.1 mg/dL (1.8-2.4); VANCOMYCIN - RANDOM 16.5 ug/mL (10.0-20.0)
[2020-07-21 08:00] VITALS: BP 102/67
--- NOTE | 2020-07-21 09:17 | MORECARE ---
CASE MANAGEMENT DISCHARGE SUMMARY PATIENT: EUFEMIA CHOWDHURY UNIT: [id number] ADM DATE: 07/12/20 AGE: 80 : 40 SEX: M ROOM/BED: D.1714 AUTHOR: MEAGAN,DOC PHYSICIAN: REFERRING PHYSICIAN: KASEY JOHNSTON DO DATE OF SERVICE: 07/21/20 Case Management Discharge Planning Summary COMMENTS ENTERED DATE: 07/21/20 9:10 CT COMMENT TYPE: Discharge Planning REVIEWER: Kaylen Underwood CM spoke with Emily Nava about HD chair. [place] [facility] is unable to accommodate a new chair set up until Saturday. Anticipate DC after dialysis Saturday for new start on Saturday? ENTERED DATE: 07/20/20 17:11 CT COMMENT TYPE: Discharge Planning REVIEWER: Kaylne Underwood DC PLAN: Home with Grand daughter ANTICIPATED DC NEEDS: OP HD chair to be set up in [place]. Emily Nava is working on this CM met with patient to complete initial dc planning assessment. CM educated patient on the CM role and verbal consent given by patient to complete assessment. CM verified patient's address, phone number, and emergency contact phone numbers. Patient lives at home with his grand daughter. His grand daughter is in the room and states she is with him 15/10. At discharge patient plans to return and feels this is a safe discharge. CM discussed availability of home health, rehab services, and medical equipment. Patient denied known discharge needs at this time. Transportation provider at discharge will be his grand daughter. She states she will be the one to drive him to and from HD. She states they have all DME needed and use [facility] for oxygen. CM will continue to follow and will assist as needed with dc plans/needs. ENTERED DATE: 07/15/20 13:51 CT COMMENT TYPE: Discharge Planning REVIEWER: Kaylen Underwood CM notified Emily, dialysis coordinator, that patient will need an outpatient dialysis chair. DCP REVIEW SUMMARY ANTICIPATED D/C DATE: EXPECTED LOS : CASE STATUS: DCP Initiated INITIAL REVIEW: 07/20/2020 INITIAL REVIEWER: Kaylen Underwood FINAL DISCHARGE DISPOSITION: : FINAL REVIEWER: FINAL REVIEW DATE: DCP Focus Questions & Answers DCP Screen QUESTION: ANSWER High Risk Factors: : Hosp related to CHF, COPD, DM, End Stage Ds, CVA, CA DCP Evaluation QUESTION: ANSWER Patient gives permission to discuss discharge plans with: (name, relationship and number) : Luz beyer daughter - [phone] Patient's current cognitive status: : *Oriented to person, place, situation, time and present Family / Caregiver's ability to cope with chronic illness: : a. Adequate (ability to meet patient's medical needs, ensures patient attends medical appts.) Patient and/or caregiver agree upon recommended discharge plan? : Yes Patient's ability to cope with chronic illness : a. Adequate (0-3 ED visits in 6 mos., adequate financial resources, attends scheduled appts.) Physical Status: : Compromised skin integrity Physical Status: : Mobility impaired Physical Status: : Partial care dependence Family / Caregiver's ability to cope with chronic illness: : a. Adequate (ability to meet patient's medical needs, ensures patient attends medical appts.) Functional screen assessment: : Basic needs can adequately be met by self Does the patient have the ability to pay for or attain post discharge needs / services? : Yes Partial Dependence, assistance required for: : Ambulation / Mobility Partial Dependence, assistance required for: : Bathing Living Arrangements: : Home with others Is there a likelihood that the patient will require additional services to return to the preadmission environment? : No Equipment needed for post hospitalization: : None Baseline cognitive status: : *Oriented to person, place, situation, time and present Living arrangements comments: : Luz clinton Patient with capacity for self-care or can be cared for in same environment as prior to hospitalization? : Yes Results of this evaluation have been discussed with: : Family Results of this evaluation have been discussed with: : Patient Physical environment modification needed / anticipated for discharge: : No Medication Management: : Patient states can afford medications Pharmacy name(s): : [facility] Planned post hospital services available for patient? : Yes Does Patient have transportation to get home and to follow-up medical appointments when discharged from the hospital? : Yes Comments: : His grand daughter will transport him to and from appointments and dialysis Would patient like to participate in any Care Coordination programs (if applicable): : Not applicable Does the patient have electricity at home? : Yes Does the patient have running water in their house? : Yes Equipment in use: : Cane - Single Leg Equipment in use: : Glucometer Equipment in use: : Home Oxygen with Nasal Cannula Equipment in use: : Nebulizer Equipment in use: : Other Equipment in use: : Shower Chair Equipment in use: : Walker - Rolling Equipment in use: : Wheelchair Other Equipment comments: : Alert button Portable Oxygen Equipment agency name and contact information: : [employer] [place] Patient Mental health screen: : No mental health history Psychosocial status: : Adult with physical limitations Abuse/Neglect: : None Contact information for resources in use: : To have HD chair set up in [facility] Re-evaluation QUESTION: ANSWER Would patient like to participate in any Care Coordination programs (if applicable): : Not applicable PATIENT: EUFEMIA CHOWDHURY ENCOUNTER: [id number] MEDICAL RECORD#: [id number] ADMISSION DATE: 07/12/2020 DISCHARGE DATE: ATTENDING MD: KASEY BOYD : AGE: 80 MARITAL STATUS: W DC PLAN ID: [id number] FACILITY: [facility] PRINTED ON: 07/21/20 9:17 CT All edits/amendments must be made on the electronic document DICTATION DATE: 07/21/20916 INSTRUMENT ENGINEER: DM 07/21/20916 RPT#: [id number] DC DATE: STATUS: ADM IN [facility] [address] [place] [address] END OF REPORT
[2020-07-21 11:07] VITALS: BP 101/62
[2020-07-21 16:04] VITALS: BP 90/60
[2020-07-21 20:00] VITALS: BP 96/64
--- NOTE | 2020-07-21 23:55 | NUR ---
REPORT RECEIVED. A&O, UP IN BED WATCHING TV. NO S/S DISTRESS OBSERVED. RR EVEN AND UNLABORED ON 3L. BED LOCKED AND LOWERED, CL IN REACH. ASSESSMENT COMPLETE. WILL CONT POC.
[2020-07-22] VITALS: BP 90/61
--- NOTE | 2020-07-22 02:37 | NUR ---
RESPONDED TO PTS ROOM. PT STATED "I DONT KNOW WHAT IS GOING ON, BUT I FEEL RIGHT. SOMETHING IS WRONG." V/S STABLE. LUNG SOUNDS UNCHANGED FROM PREVIOUS ASSESSMENT. SPOKE WITH MARISELA PARDO APN. ORDERS TO D/C FLUIDS AND CONSULT DR. MILLS IN THE AM.
[2020-07-22 04:00] VITALS: BP 119/74
[2020-07-22 06:03] LABS: BASOPHILS 0.2 % (0-2); EOSINOPHILS 1.5 % (0-7); HEMATOCRIT 31.9 % (42.0-54.0); HEMOGLOBIN 9.7 g/dL (13.5-17.5); IMMATURE GRANULOCYTES 0.4 % (0-5); LYMPHOCYTE ABS# 0.59 10x3/uL (1.32-3.57); LYMPHOCYTES 12.9 % (15-50); MCH 30.2 pg (26.0-34.0); MCHC 30.4 g/dL (31.0-37.0); MCV 99.4 fL (80.0-100.0); MEAN PLATELET VOLUME 11.7 fL (7.4-10.4); MONOCYTES 11.4 % (2-11); NEUTROPHIL ABS# 3.35 10x3/uL (1.78-5.38); NEUTROPHILS 73.6 % (40-80); PLATELET COUNT 160 10x3/uL (130-400); RBC 3.21 10x6/uL (4.20-6.10); RDW 15.5 % (11.5-14.5); WBC 4.6 10x3/uL (4.8-10.8)
[2020-07-22 06:26] LABS: ALBUMIN 2.8 g/dL (3.4-5.0); ANION GAP 15.5 mmol/L (8-16); BILIRUBIN - TOTAL 0.76 mg/dL (0.2-1.3); CALCIUM 8.8 mg/dL (8.5-10.1); CARBON DIOXIDE 26.4 mmol/L (21.0-32.0); CREATININE - SERUM 3.2 mg/dL (0.6-1.3); MAGNESIUM - SERUM 2.3 mg/dL (1.8-2.4); POTASSIUM - SERUM 3.9 mmol/L (3.5-5.1); VANCOMYCIN - RANDOM 14.8 ug/mL (10.0-20.0)
--- NOTE | 2020-07-22 07:58 | NUR ---
0800 ENCOURAGED IS USE PULLING 1250ML
[2020-07-22] MEDS ORDERED: FLOMAX0.4 MG PO (08:52)
[2020-07-22] MEDS ORDERED: COREG 3.1253.125 MG PO (08:53)
[2020-07-22] MEDS ORDERED: FLORAJEN DIGES1 EACH PO (08:54)
[2020-07-22] MEDS ORDERED: MELATONIN 3 MG1 TAB PO (08:55)
[2020-07-22] MEDS ORDERED: HYDROCODON-ACE1 EAC7 PO (08:57)
[2020-07-22] MEDS ORDERED: ATIVAN0.5 MG PO (08:57)
[2020-07-22 09:15] VITALS: BP 94/63
--- NOTE | 2020-07-22 11:57 | NUR ---
0940 TRANSPORTED TO DIALYSIS UNIT VIA BED
--- NOTE | 2020-07-22 14:44 | NUR ---
1421 WRITTEN AND VERBAL DISCHARGE INSTRUCTIONS PROVIDE BOTH PATIENT AND HIS CAREGIVER, BETTINA, VERBALIZED UNDERSTANDING [facility] SITE DRY AND INTACT INSTRUCTED ON ARRIVAL TO HIS [facility] DIALYSIS UNIT IN [place] WHEELCHAIR TO FAMILY CAR
--- NOTE | 2020-07-22 14:44 | NUR ---
1400 TRETURNED FROM DIALYSIS UNIT 1.5 LITERS REMOVED
--- NOTE | 2020-07-22 15:09 | MORECARE ---
CASE MANAGEMENT DISCHARGE SUMMARY PATIENT: EUFEMIA CHOWDHURY UNIT: [id number] ADM DATE: 07/12/20 AGE: 80 : 40 SEX: M ROOM/BED: D.2999 AUTHOR: MEAGAN,DOC PHYSICIAN: REFERRING PHYSICIAN: KASEY JOHNSTON DO DATE OF SERVICE: 07/22/20 Case Management Discharge Planning Summary COMMENTS ENTERED DATE: 07/22/20 14:46 CT COMMENT TYPE: Discharge Planning REVIEWER: Tiarra Tapia LATE ENTRY 0905 SUKHDEV PORTILLO CALLED TO VERIFY [place]AIR TIME FOR [place] HE WILL DIALYZE HERE FOR TODAY THEN START IN [place] ON SATURDAY. SHE WILL FORWARD THE PACKET W/ CHAIR TIME (1030) PASTIENT RETURNED FROM DIALYZE AND WAS DISCHARGED IMMEDIATELY. CM DID NOT GET TO SEE PATIENT PRIOR TO DISCHARGE. ENTERED DATE: 07/21/20 9:10 CT COMMENT TYPE: Discharge Planning REVIEWER: Kaylen Underwood CM spoke with Emily Nava about HD chair. [place] [facility] is unable to accommodate a new chair set up until Saturday. Anticipate DC after dialysis Saturday for new start on Saturday? ENTERED DATE: 07/20/20 17:11 CT COMMENT TYPE: Discharge Planning REVIEWER: Kaylen Underwood DC PLAN: Home with Grand daughter ANTICIPATED DC NEEDS: OP HD chair to be set up in [place]. Emily Nava is working on this CM met with patient to complete initial dc planning assessment. CM educated patient on the CM role and verbal consent given by patient to complete assessment. CM verified patient's address, phone number, and emergency contact phone numbers. Patient lives at home with his grand daughter. His grand daughter is in the room and states she is with him 15/10. At discharge patient plans to return and feels this is a safe discharge. CM discussed availability of home health, rehab services, and medical equipment. Patient denied known discharge needs at this time. Transportation provider at discharge will be his grand daughter. She states she will be the one to drive him to and from HD. She states they have all DME needed and use [facility] for oxygen. CM will continue to follow and will assist as needed with dc plans/needs. ENTERED DATE: 07/15/20 13:51 CT COMMENT TYPE: Discharge Planning REVIEWER: Kaylen Underwood CM notified Emily, dialysis coordinator, that patient will need an outpatient dialysis chair. DCP REVIEW SUMMARY ANTICIPATED D/C DATE: EXPECTED LOS : CASE STATUS: DCP Initiated INITIAL REVIEW: 07/20/2020 INITIAL REVIEWER: Kaylen Underwood FINAL DISCHARGE DISPOSITION: : FINAL REVIEWER: FINAL REVIEW DATE: DCP Focus Questions & Answers DCP Screen QUESTION: ANSWER High Risk Factors: : Hosp related to CHF, COPD, DM, End Stage Ds, CVA, CA DCP Evaluation QUESTION: ANSWER Patient's ability to cope with chronic illness : a. Adequate (0-3 ED visits in 6 mos., adequate financial resources, attends scheduled appts.) Patient and/or caregiver agree upon recommended discharge plan? : Yes Family / Caregiver's ability to cope with chronic illness: : a. Adequate (ability to meet patient's medical needs, ensures patient attends medical appts.) Patient's current cognitive status: : *Oriented to person, place, situation, time and present Patient gives permission to discuss discharge plans with: (name, relationship and number) : Luz Perez - grand daughter - [phone] Does the patient have the ability to pay for or attain post discharge needs / services? : Yes Functional screen assessment: : Basic needs can adequately be met by self Family / Caregiver's ability to cope with chronic illness: : a. Adequate (ability to meet patient's medical needs, ensures patient attends medical appts.) Physical Status: : Partial care dependence Physical Status: : Mobility impaired Physical Status: : Compromised skin integrity Equipment needed for post hospitalization: : None Is there a likelihood that the patient will require additional services to return to the preadmission environment? : No Living Arrangements: : Home with others Partial Dependence, assistance required for: : Bathing Partial Dependence, assistance required for: : Ambulation / Mobility Results of this evaluation have been discussed with: : Patient Results of this evaluation have been discussed with: : Family Patient with capacity for self-care or can be cared for in same environment as prior to hospitalization? : Yes Living arrangements comments: : Luz Perez - grand daughter Baseline cognitive status: : *Oriented to person, place, situation, time and present Physical environment modification needed / anticipated for discharge: : No Medication Management: : Patient states can afford medications Planned post hospital services available for patient? : Yes Pharmacy name(s): : [facility] Does Patient have transportation to get home and to follow-up medical appointments when discharged from the hospital? : Yes Would patient like to participate in any Care Coordination programs (if applicable): : Not applicable Comments: : His grand daughter will transport him to and from appointments and dialysis Does the patient have electricity at home? : Yes Does the patient have running water in their house? : Yes Equipment in use: : Wheelchair Equipment in use: : Walker - Rolling Equipment in use: : Shower Chair Equipment in use: : Other Equipment in use: : Nebulizer Equipment in use: : Home Oxygen with Nasal Cannula Equipment in use: : Glucometer Equipment in use: : Cane - Single Leg Other Equipment comments: : Alert button Portable Oxygen Equipment agency name and contact information: : [place] Patient Mental health screen: : No mental health history Psychosocial status: : Adult with physical limitations Abuse/Neglect: : None Contact information for resources in use: : To have HD chair set up in [facility] Re-evaluation QUESTION: ANSWER Would patient like to participate in any Care Coordination programs (if applicable): : Not applicable PATIENT: EUFEMIA CHOWDHRUY ENCOUNTER: [id number] MEDICAL RECORD#: [id number] ADMISSION DATE: 07/12/2020 DISCHARGE DATE: 07/22/2020 ATTENDING MD: KASEY BOYD : AGE: 80 MARITAL STATUS: W DC PLAN ID: [id number] FACILITY: [facility] PRINTED ON: 07/22/20 15:09 CT All edits/amendments must be made on the electronic document DICTATION DATE: 07/22/201508 HEALTH PSYCHOLOGIST: CHAPIS 07/22/20 1509 RPT#: [id number] DC DATE:07/22/20 STATUS: DIS IN [facility] [address] [place] [address] END OF REPORT
--- NOTE | 2020-07-23 15:24 | EC ---
PATIENT:EUFEMIA CHOWDHURY DATE OF SERVICE: 07/12/20 SEX: M MEDICAL RECORD: [id number] DATE OF : 40 LOCATION:D.M2 D.211 AGE OF PATIENT: 80 ADMISSION DATE: 07/12/20 REFERRING PHYSICIAN: INTERPRETING PHYSICIAN: BARB PERES MD ECHOCARDIOGRAM REPORT ECHO CHARGES 4 ECHO COMPLETE Date: 07/13/20 CLINICAL DIAGNOSIS: CHF ECHOCARDIOGRAPHIC MEASUREMENTS (adult normal given) AC root (d.<3.7cm) 3.5 cm LV Septum d (<1.2 cm> 0.7 cm Valve Excursion 1.8 cm LV Septum (systole) 0.9 cm Left Atria (s.<4.0cm> 5.0 cm LVPW d(<1.2cm) 0.9 cm RV (d.<2.3cm) 4.1 cm LVPW (sytole) 1.0 cm LV diastole(<5.6CM) 6.5 cm MV E-F(>70mm/sec) cm LV systole 5.9 cm LVOT Diameter 1.9 cm MV exc.(>10mm) 1.6 cm Est.ejection fraction (50-75%) % DOPPLER: LVIT cm/sec A 36 cm/sec E 95 cm/sec LA cm/sec RVSP 51 mmHg LVOT 77 cm/sec AOP1/2T m/s Asc. Ao 110 cm/sec RVOT 77 cm/sec RA cm/sec PA 63 cm/sec AV Gradient Peak 4.9 mmHg AV Mean 2.7 mmHg AV Area 2.5 cm MV Gradient Peak 6.5 mmHg MV Mean 2.2 mmHg MV Area cm COMMENTS: Zigzag Elastic Attacher: Vanita [facility] Chief Medical Director: 2 Dr. Manjarrez TAPE# Pericardial Effusion N DATE OF SERVICE: DIAGNOSIS: CHF. INTERPRETATION: Dilated left ventricular chamber with severe global LV contractile dysfunction with ejection fraction 20% to 25%. FINDINGS: Left atrial chamber, mild dilatation. Mild dilatation, right atrial chamber. Right ventricle chamber size and function appears normal. Mild thickening of ECHOCARDIOGRAM REPORT [id number] EUFEMIA CHOWDHURY the aortic valve with good cusp excursion. Doppler examination revealed trace to mild aortic regurgitation. Mitral valve appears normal. Moderate mitral regurgitation. Tricuspid valve appears normal. Mild tricuspid regurgitation. Tricuspid velocity around 3 meters per second with an estimated PA pressures of 46 mmHg suggestive of mild to moderate pulmonary hypertension. Pulmonic valve well visualized. Mild pulmonary regurgitation. No pericardial effusion is visualized. IMPRESSION: 1. Dilated cardiomyopathy with severe global LV contractile dysfunction with ejection fraction 20% to 25%. 2. Moderate mitral regurgitation. 3. Mild tricuspid regurgitation with estimated PA pressure 46 mmHg suggestive of mild pulmonary hypertension. TRANSINT:[id number] Voice Confirmation ID: [id number] DOCUMENT ID: [id number] ABRB PERES MD at 1524 CC: [id number] DICTATION DATE: 07/13/20 155 QUAHOGGER: 07/13/202108 DIS IN 07/22/20 [facility] [address] [place] [address]
--- NOTE | 2020-07-23 16:51 | MORECARE ---
CASE MANAGEMENT DISCHARGE SUMMARY PATIENT: EUFEMIA CHOWDHURY UNIT: [id number] ADM DATE: 07/12/20 AGE: 80 : 40 SEX: M ROOM/BED: D.6908 AUTHOR: MEAGAN,DOC PHYSICIAN: REFERRING PHYSICIAN: KASEY JOHNSTON DO DATE OF SERVICE: 07/23/20 Case Management Discharge Planning Summary COMMENTS ENTERED DATE: 07/22/20 14:46 CT COMMENT TYPE: Discharge Planning REVIEWER: Tiarra Tapia LATE ENTRY 0986 SUKHDEV PORTILLO CALLED TO VERIFY CHAIR TIME FOR [place] HE WILL [place]IAL[place]ZE HERE FOR TODAY THEN START IN [place] ON SATURDAY. SHE WILL FORWARD THE PACKET W/ CHAIR TIME (1030) PASTIENT RETURNED FROM [place] AND WAS DISCHARGED IMMEDIATELY. CM DID NOT GET TO SEE PATIENT PRIOR TO DISCHARGE. ENTERED DATE: 07/21/20 9:10 CT COMMENT TYPE: Discharge Planning REVIEWER: Kaylen Underwood CM spoke with Emily Nava about HD chair. [facility] is unable to accommodate a new chair set up until Saturday. Anticipate DC after dialysis Saturday for new start on Saturday? ENTERED DATE: 07/20/20 17:11 CT COMMENT TYPE: Discharge Planning REVIEWER: Kaylen Underwood DC PLAN: Home with Grand daughter ANTICIPATED DC NEEDS: OP HD chair to be set up in [facility]. Emily Nava is working on this CM met with patient to complete initial dc planning assessment. CM educated patient on the CM role and verbal consent given by patient to complete assessment. CM verified patient's address, phone number, and emergency contact phone numbers. Patient lives at home with his grand daughter. His grand daughter is in the room and states she is with him 15/10. At discharge patient plans to return and feels this is a safe discharge. CM discussed availability of home health, rehab services, and medical equipment. Patient denied known discharge needs at this time. Transportation provider at discharge will be his grand daughter. She states she will be the one to drive him to and from HD. She states they have all DME needed and use [facility] for oxygen. CM will continue to follow and will assist as needed with dc plans/needs. ENTERED DATE: 07/15/20 13:51 CT COMMENT TYPE: Discharge Planning REVIEWER: Kaylen Underwood CM notified Emily, dialysis coordinator, that patient will need an outpatient dialysis chair. DCP REVIEW SUMMARY ANTICIPATED D/C DATE: EXPECTED LOS : CASE STATUS: DCP Initiated INITIAL REVIEW: 07/20/2020 INITIAL REVIEWER: Kaylen Underwood FINAL DISCHARGE DISPOSITION: : FINAL REVIEWER: FINAL REVIEW DATE: DCP Focus Questions & Answers DCP Screen QUESTION: ANSWER High Risk Factors: : Hosp related to CHF, COPD, DM, End Stage Ds, CVA, CA DCP Evaluation QUESTION: ANSWER Patient gives permission to discuss discharge plans with: (name, relationship and number) : Luz Perez - grand daughter - [phone] Patient's current cognitive status: : *Oriented to person, place, situation, time and present Family / Caregiver's ability to cope with chronic illness: : a. Adequate (ability to meet patient's medical needs, ensures patient attends medical appts.) Patient and/or caregiver agree upon recommended discharge plan? : Yes Patient's ability to cope with chronic illness : a. Adequate (0-3 ED visits in 6 mos., adequate financial resources, attends scheduled appts.) Physical Status: : Compromised skin integrity Physical Status: : Mobility impaired Physical Status: : Partial care dependence Family / Caregiver's ability to cope with chronic illness: : a. Adequate (ability to meet patient's medical needs, ensures patient attends medical appts.) Functional screen assessment: : Basic needs can adequately be met by self Does the patient have the ability to pay for or attain post discharge needs / services? : Yes Partial Dependence, assistance required for: : Ambulation / Mobility Partial Dependence, assistance required for: : Bathing Living Arrangements: : Home with others Is there a likelihood that the patient will require additional services to return to the preadmission environment? : No Equipment needed for post hospitalization: : None Baseline cognitive status: : *Oriented to person, place, situation, time and present Living arrangements comments: : Luz Perez - grand daughter Patient with capacity for self-care or can be cared for in same environment as prior to hospitalization? : Yes Results of this evaluation have been discussed with: : Family Results of this evaluation have been discussed with: : Patient Physical environment modification needed / anticipated for discharge: : No Medication Management: : Patient states can afford medications Pharmacy name(s): : [facility] Planned post hospital services available for patient? : Yes Does Patient have transportation to get home and to follow-up medical appointments when discharged from the hospital? : Yes Comments: : His grand daughter will transport him to and from appointments and dialysis Would patient like to participate in any Care Coordination programs (if applicable): : Not applicable Does the patient have electricity at home? : Yes Does the patient have running water in their house? : Yes Equipment in use: : Cane - Single Leg Equipment in use: : Glucometer Equipment in use: : Home Oxygen with Nasal Cannula Equipment in use: : Nebulizer Equipment in use: : Other Equipment in use: : Shower Chair Equipment in use: : Walker - Rolling Equipment in use: : Wheelchair Other Equipment comments: : Alert button Portable Oxygen Equipment agency name and contact information: : [facility] Patient Mental health screen: : No mental health history Psychosocial status: : Adult with physical limitations Abuse/Neglect: : None Contact information for resources in use: : To have HD chair set up in [facility] Re-evaluation QUESTION: ANSWER Would patient like to participate in any Care Coordination programs (if applicable): : Not applicable PATIENT: EUFEMIA CHOWDHURY ENCOUNTER: [id number] MEDICAL RECORD#: [id number] ADMISSION DATE: 07/12/2020 DISCHARGE DATE: 07/22/2020 ATTENDING MD: KASEY BOYD : AGE: 80 MARITAL STATUS: W DC PLAN ID: [id number] FACILITY: [facility] PRINTED ON: 07/23/20 16:51 CT All edits/amendments must be made on the electronic document DICTATION DATE: 07/23/201650 INTERIOR DESIGN CONSULTANT: CHAPIS 07/23/201650 RPT#: [id number] DC DATE:07/22/20 STATUS: DIS IN [facility] [address] [place] [address] END OF REPORT
== END 2020-07-22 14:21 | disposition home or self-care (01) | DRG 280 ==
LOC: D.ER 17:47 → D.M2 21:16
PROVIDERS: Family Medicine; Internal Medicine Nephrology; ADMIT Family Medicine; ATTEND Family Medicine
PROC: 5A1D70Z Performance of Urinary Filtration, Intermittent, Less than 6 Hours Per Day (ICD-10-PCS; principal; 2020-07-15)
PROC: 05PYX3Z Removal of Infusion Device from Upper Vein, External Approach (ICD-10-PCS; 2020-07-16)
PROC: 05HM33Z Insertion of Infusion Device into Right Internal Jugular Vein, Percutaneous Approach (ICD-10-PCS; 2020-07-16)
PROC: B5131ZA Fluoroscopy of Right Jugular Veins using Low Osmolar Contrast, Guidance (ICD-10-PCS; 2020-07-19)
PROC: 05HM33Z Insertion of Infusion Device into Right Internal Jugular Vein, Percutaneous Approach (ICD-10-PCS; 2020-07-19)
DX: I42.0 Dilated cardiomyopathy (principal); I50.23 Acute on chronic systolic (congestive) heart failure; I21.A1 Myocardial infarction type 2; J18.9 Pneumonia, unspecified organism; J96.20 Acute and chronic respiratory failure, unspecified whether with hypoxia or hypercapnia; N18.6 End stage renal disease; I13.2 Hypertensive heart and chronic kidney disease with heart failure and with stage 5 chronic kidney disease, or end stage renal disease; I25.5 Ischemic cardiomyopathy; E87.5 Hyperkalemia; E83.41 Hypermagnesemia; E11.22 Type 2 diabetes mellitus with diabetic chronic kidney disease; R80.8 Other proteinuria; I95.9 Hypotension, unspecified; E11.65 Type 2 diabetes mellitus with hyperglycemia; N40.0 Benign prostatic hyperplasia without lower urinary tract symptoms; Z99.2 Dependence on renal dialysis